=== PATIENT | male | born 1940 | race Caucasian/White ===

== ENCOUNTER 2017-04-25 06:58 | Inpatient (IN) | payer OTHER ==
[2017-04-24 15:11] VITALS: BP 110/58
[2017-04-24 15:33] LABS: APPEARANCE,URINE Clear (CLEAR); BILIRUBIN,URINE Negative (NEGATIVE); COLOR,URINE Yellow (YELLOW); GLUCOSE, URINE (UA) Negative (NEGATIVE); KETONES,URINE Negative (NEGATIVE); LEUKOCYTE ESTERASE ,URINE Small (NEGATIVE); NITRATE,URINE Negative (NEGATIVE); OCCULT BLOOD,URINE Negative (NEGATIVE); PROTEIN,URINE Negative (NEGATIVE)
[2017-04-24 15:33] LABS: EOSINOPHILS % (AUTO) 6.3 % (0.0-8.0); HEMATOCRIT 36.7 % (42-54); LYMPHOCYTES % (AUTO) 28.1 % (21.0-51.0); MEAN CORPUSCULAR HEMOGLOBIN 31.1 pg (27.0-33.0); MEAN CORPUSCULAR HGB CONC 33.9 g/dL (32.0-36.0); MEAN CORPUSCULAR VOLUME 91.7 fL (79-99); MONOCYTES % (AUTO) 17.3 % (3.0-13.0); NEUTROPHILS % (AUTO) 47.3 % (40.0-77.0); PLATELET COUNT (AUTO) 499 K/uL (130-400); RED CELL DISTRIBUTION WIDTH 15.5 % (11.0-15.5)
[2017-04-24 15:52] LABS: CREATININE 0.7 mg/dL (0.5-1.5); INR 1.06 (0.85-1.15); PARTIAL THROMBOPLASTIN TIME 32.1 SEC (26.3-35.5); POTASSIUM 4.8 mmol/L (3.5-5.1); PROTHROMBIN TIME 11.1 SEC (9.6-11.6)
[2017-04-24 15:59] LABS: BACTERIA,URINE None Seen /HPF (None Seen); RBC,URINE None Seen /HPF (0-1); SQUAMOUS EPITHELIAL CELL,UR 0-2 /LPF (0-2)
[~2017-04-25] VITALS: Ht 188 cm; Wt 83.6 kg
[2017-04-25] VITALS (18 sets, daily range): BP systolic 97–151; BP diastolic 32–97
[~2017-04-25 06:58] MED LIST: ACET-66 PO; ASCO10007 PO; ASPI-888 PO; CETI10TA57 PO; CHOL200074 PO; CLOP75TA14 PO; INSU100I15 SQ; INSU3INS3 SQ; ISOS60TA4 PO; MULT-1203 PO; OMEG-61 PO; RANI300T4 PO; RANO10003 PO; SIMV20TA6 PO; UBID200C37 PO; UMEC1DIS IH; VALS40TA10 PO; VITA1TAB39 PO
[2017-04-25] MEDS ORDERED: SODIUM CHLORIDE 0.9% 500ML 500 ML IV ONE (08:16)
[2017-04-25] MEDS ORDERED: ISOVUE-370 50ML VIAL IV ONE (08:31)
[2017-04-25] MEDS ORDERED: NITROGLYCERIN 5 MG/ML 10 ML VIAL IV ONE (08:31)
[2017-04-25] MEDS ORDERED: HEPARIN SODIUM 1000UNIT/ML 10ML VIAL ONE (08:31)
[2017-04-25] MEDS ORDERED: IOPAMIDOL-370 100 ML VIAL IV ONE (08:31)
[2017-04-25] MEDS ORDERED: BIVALIRUDIN 250 MG/VIAL IV ONE (08:31)
[2017-04-25] MEDS ORDERED: LIDOCAINE HCL 2% 20ML ONE (08:32)
[2017-04-25] MEDS ORDERED: IOPAMIDOL-370 75 ML VIAL IV ONE (11:16)
[2017-04-25] MEDS ORDERED: HEPARIN 25000 UNITS/250 ML D5W 250 ML IV ONE (11:47)
[2017-04-25] MEDS ORDERED: INSULIN LISPRO 100 UNIT/ML 3ML SQ PRN (12:00)
[2017-04-25] MEDS ORDERED: SODIUM BICARB 8.4% 50ML SYRINGE IVP ONE (12:00)
[2017-04-25] MEDS ORDERED: GLUCAGON 1MG KIT 1 MG ML IM PRN (12:00)
[2017-04-25] MEDS ORDERED: HEPARIN 25000 UNITS/250 ML D5W 250 ML IV PRN (12:00)
[2017-04-25] MEDS ORDERED: DEXTROSE 50%-WATER 50 ML DISP.SYRIN IV PRN (12:00)
[2017-04-25] MEDS ORDERED: ACETAMINOPHEN EXTRA STRENGTH 500 MG TABLET PO PRN (12:00)
[2017-04-25] MEDS ORDERED: ACETAMINOPHEN-CODEINE 300/30MG TAB PO PRN ×2 (12:00)
[2017-04-25] MEDS: SODIUM CHLORIDE 0.9% 1000ML 1,000 ML IV SCH (16:00)
[2017-04-25] MEDS: INSULIN HUMULIN R 100 UNIT/ML 3ML SQ SCH ×2 (16:30→21:00)
[2017-04-25] MEDS ORDERED: ONDANSETRON HCL 4 MG/2 ML VIAL ONE (16:57)
[2017-04-25] MEDS ORDERED: ONDANSETRON HCL 4 MG/2 ML VIAL IVP PRN (17:00)
[2017-04-25 17:55] LABS: HEMOGLOBIN A1C 5.8 % (4.0-6.0)
[2017-04-25 17:57] LABS: CHOLESTEROL 106 mg/dL (<200); HDL CHOLESTEROL 53 mg/dL (29-71); LDL DIRECT 55 mg/dL (0-99); TRIGLYCERIDES 15 mg/dL (30-200)
[2017-04-25] MEDS ORDERED: DiphenhydrAMINE HCL 50 MG/ML VIAL IV PRN (21:00)
[2017-04-25] MEDS ORDERED: ATORVASTATIN CALCIUM 10 MG TABLET PO SCH (21:00)
[2017-04-25] MEDS ORDERED: ASPIRIN 81 MG EC TAB PO SCH (21:00)
[2017-04-25] MEDS: FAMOTIDINE 20MG TAB 20 MG TAB PO SCH (22:17)
[2017-04-26] VITALS (28 sets, daily range): BP systolic 74–144; BP diastolic 31–105
[2017-04-26] MEDS: SODIUM CHLORIDE 0.9% 1000ML 1,000 ML IV SCH (01:00)
[2017-04-26 03:16] LABS: HEMATOCRIT 39.8 % (42-54); MEAN CORPUSCULAR HEMOGLOBIN 30.3 pg (27.0-33.0); MEAN CORPUSCULAR HGB CONC 33.2 g/dL (32.0-36.0); MEAN CORPUSCULAR VOLUME 91.2 fL (79-99); PLATELET COUNT (AUTO) 436 K/uL (130-400); RED BLOOD CELL COUNT(AUTO) 4.36 MIL/uL (4.50-6.20); WHITE BLOOD COUNT (AUTO) 11.3 K/uL (4.8-10.8)
[2017-04-26 03:22] LABS: CREATININE 0.7 mg/dL (0.5-1.5); POTASSIUM 4.7 mmol/L (3.5-5.1)
[2017-04-26 03:32] LABS: INR 1.03 (0.85-1.15); PARTIAL THROMBOPLASTIN TIME 58.8 SEC (26.3-35.5); PROTHROMBIN TIME 10.8 SEC (9.6-11.6)
[2017-04-26] MEDS ORDERED: NITROGLYCERIN 50 MG/D5% WATER 250 BOT IV PRN (05:45)
[2017-04-26] MEDS ORDERED: NITROGLYCERIN 50 MG/D5% WATER 1 BOT ONE ×2 (05:59→10:28)
[2017-04-26] MEDS: INSULIN HUMULIN R 100 UNIT/ML 3ML SQ SCH (07:11)
[2017-04-26] MEDS ORDERED: VANCOMYCIN 1GM+NS 250ML 250 ML IV ONE (08:00)
[2017-04-26] MEDS ORDERED: ROCURONIUM BROMIDE 10MG/1ML 5ML VL ONE (08:41)
[2017-04-26] MEDS ORDERED: GLYCOPYRROLATE 0.2 MG/ML 5 ML VIAL ONE (08:41)
[2017-04-26] MEDS ORDERED: FENTANYL CITRATE PF 50 MCG/1 ML 20ML VIAL IJ ONE (08:41)
[2017-04-26] MEDS ORDERED: PROTAMINE SULFATE 10 MG/ML 25ML VIAL IV ONE (08:41)
[2017-04-26] MEDS ORDERED: NOREPINEPHRINE BITARTRATE 1 MG/1 ML ML IV ONE (08:41)
[2017-04-26] MEDS ORDERED: ESMOLOL HCL 10 MG/ML 10 ML VIAL ONE (08:41)
[2017-04-26] MEDS ORDERED: LIDOCAINE PF 2% 5ML ABBOJECT ONE (08:41)
[2017-04-26] MEDS ORDERED: EPINEPHRINE 1 MG/ML AMPULE ONE (08:41)
[2017-04-26] MEDS ORDERED: AMIODARONE HCL 900MG/18ML IV ONE (08:41)
[2017-04-26] MEDS ORDERED: NEOSTIGMINE METHYLSULFATE 1MG/ML IV ONE (08:41)
[2017-04-26] MEDS ORDERED: MILRINONE-D5W 20 MG/100 ML 100 ML IV ONE (08:41)
[2017-04-26] MEDS ORDERED: AMINOCAPROIC ACID 250 MG/ML 20 ML VIAL IV ONE (08:41)
[2017-04-26] MEDS ORDERED: HEPARIN SODIUM 1000UNIT/ML 10ML VIAL ONE ×2 (08:41→12:55)
[2017-04-26] MEDS ORDERED: PROPOFOL 10 MG/ML 20ML VIAL IV ONE (08:42)
[2017-04-26] MEDS ORDERED: MIDAZOLAM HCL 1 MG/ML 5ML VIAL ONE (08:42)
[2017-04-26] MEDS ORDERED: Umeclidinium Brm/Vilanterol Tr (Anoro Ellipta 62.5-25 Mcg IH SCH (09:00)
[2017-04-26] MEDS ORDERED: ISOSORBIDE MONO 60 MG TAB.SR PO SCH (09:00)
[2017-04-26] MEDS ORDERED: CHOLECALCIFEROL 2000 UNIT PO SCH (09:00)
[2017-04-26] MEDS ORDERED: INSULIN GLARGINE 100 UNITS/ML 10 ML VIAL SQ SCH (09:00)
[2017-04-26] MEDS: FAMOTIDINE 20MG TAB 20 MG TAB PO SCH (09:12)
[2017-04-26] MEDS ORDERED: DIAZEPAM 5 MG TABLET PO SCH (09:15)
[2017-04-26] MEDS: CALDOLOR 800MG+NS 250ML 250 ML IV SCH (09:15)
[2017-04-26] MEDS ORDERED: OCTYL 2-CYANOACRYLATE 1 EACH TP ONE (09:46)
[2017-04-26] MEDS ORDERED: PAPAVERINE HCL 30 MG/ML 2ML VIAL ONE (09:46)
[2017-04-26] MEDS ORDERED: BACITRACIN 50,000 UNIT VIAL ONE (09:47)
[2017-04-26 12:49] LABS: ABG BASE EXCESS -4.6 mmol/L (-2.0-3.0); ABG HCO3 20.8 mmol/L (21.0-28.0); ABG OXYGEN SATURATION 99.5 % (95.0-99.0); ABG PCO2 40 mmHg (35-48)
[2017-04-26] MEDS ORDERED: THROMBIN-JMI 5000 UNIT/VIAL TP ONE (12:56)
[2017-04-26] MEDS ORDERED: SODIUM BICARB 50MEQ 50ML VIAL ONE ×6 (13:43→20:35)
[2017-04-26 13:57] LABS: ABG BASE EXCESS -3.9 mmol/L (-2.0-3.0); ABG HCO3 21.4 mmol/L (21.0-28.0); ABG OXYGEN SATURATION 99.3 % (95.0-99.0); ABG PCO2 40 mmHg (35-48)
[2017-04-26] MEDS ORDERED: METHYLPREDNISOLONE SOD SUCC 125MG/2ML VIAL ONE (14:07)
[2017-04-26] MEDS ORDERED: SODIUM BICARB 8.4% 50ML SYRINGE ONE (14:54)
[2017-04-26 14:59] LABS: ABG BASE EXCESS -8.1 mmol/L (-2.0-3.0); ABG HCO3 18.4 mmol/L (21.0-28.0); ABG OXYGEN SATURATION 99.5 % (95.0-99.0); ABG PCO2 42 mmHg (35-48)
[2017-04-26] MEDS ORDERED: SODIUM CHLORIDE 0.9% 500ML 500 ML IV SCH (15:46)
[2017-04-26 15:49] LABS: ABG BASE EXCESS -3.5 mmol/L (-2.0-3.0); ABG HCO3 21.4 mmol/L (21.0-28.0); ABG OXYGEN SATURATION 99.4 % (95.0-99.0); ABG PCO2 38 mmHg (35-48)
[2017-04-26] MEDS ORDERED: NITROGLYCERIN 50 MG/D5% WATER 250 BOT IV SCH (16:00)
[2017-04-26] MEDS ORDERED: ONDANSETRON HCL 4 MG/2 ML VIAL IV PRN (16:00)
[2017-04-26] MEDS ORDERED: ACETAMINOPHEN 650 MG SUPPOSITORY RC PRN (16:00)
[2017-04-26] MEDS ORDERED: NICARDIPINE HCL 100 MG in SODIUM CHLORIDE 0.9% 100 ML IV PRN (16:00)
[2017-04-26] MEDS ORDERED: CALCIUM GLUCONATE 1 GM in SODIUM CHLORIDE 0.9% 50 ML IV PRN (16:00)
[2017-04-26] MEDS ORDERED: DEXTROSE 50%-WATER 50 ML DISP.SYRIN IV PRN (16:00)
[2017-04-26] MEDS ORDERED: SODIUM BICARB 8.4% 50ML SYRINGE IV PRN (16:00)
[2017-04-26] MEDS ORDERED: SODIUM CHLORIDE 0.9% 250 ML IV PRN (16:00)
[2017-04-26] MEDS ORDERED: SODIUM CHLORIDE 0.9% 1000ML 1,000 ML IV SCH (16:00)
[2017-04-26] MEDS ORDERED: MORPHINE SULFATE 2 MG/ML 1ML SYG IV PRN (16:00)
[2017-04-26] MEDS ORDERED: GLUCAGON 1MG KIT 1 MG ML IM PRN (16:00)
[2017-04-26] MEDS ORDERED: SODIUM CHLORIDE 0.9% 10 ML VIAL IVP PRN (16:00)
[2017-04-26] MEDS ORDERED: AMINOCAPROIC ACID 15,000 MG in SODIUM CHLORIDE 0.9% 250 ML IV SCH (16:00)
[2017-04-26] MEDS ORDERED: EPINEPHRINE 2 MG in SODIUM CHLORIDE 0.9% 250 ML IV PRN (16:00)
[2017-04-26] MEDS ORDERED: PROPOFOL 1000 MG/100 ML 100 ML IV PRN (16:00)
[2017-04-26] MEDS ORDERED: ALBUMIN (HUMAN) 5% 250 ML IV PRN (16:00)
[2017-04-26] MEDS ORDERED: HYDROCODONE/ACETAMINOPHEN 5/325 MG TAB PO PRN (16:00)
[2017-04-26] MEDS ORDERED: INSULIN REGULAR, HUMAN 3ML 100 UNIT in SODIUM CHLORIDE 0.9% 99 ML IV SCH ×2 (16:00)
[2017-04-26] MEDS ORDERED: POTASSIUM PHOS 15 mMOL+NS250ML 250 ML IV PRN (16:00)
[2017-04-26 16:26] LABS: ABG BASE EXCESS -6.3 mmol/L (-2.0-3.0); ABG HCO3 19.5 mmol/L (21.0-28.0); ABG OXYGEN SATURATION 99.5 % (95.0-99.0); ABG PCO2 40 mmHg (35-48)
[2017-04-26] MEDS ORDERED: EPHEDRINE SULFATE 50 MG/ML AMPULE ONE (16:31)
[2017-04-26 17:14] LABS: HEMATOCRIT 35.1 % (42-54); MEAN CORPUSCULAR HEMOGLOBIN 30.1 pg (27.0-33.0); MEAN CORPUSCULAR HGB CONC 32.4 g/dL (32.0-36.0); MEAN CORPUSCULAR VOLUME 92.8 fL (79-99); PLATELET COUNT (AUTO) 287 K/uL (130-400); RED BLOOD CELL COUNT(AUTO) 3.78 MIL/uL (4.50-6.20); RED CELL DISTRIBUTION WIDTH 15.2 % (11.0-15.5)
[2017-04-26 17:25] LABS: CREATININE 0.9 mg/dL (0.5-1.5); MAGNESIUM 1.3 mg/dL (1.80-2.40); PHOSPHORUS 4.8 mg/dL (2.5-4.9); POTASSIUM 3.5 mmol/L (3.5-5.1)
[2017-04-26 17:26] LABS: INR 1.24 (0.85-1.15); PARTIAL THROMBOPLASTIN TIME 30.1 SEC (26.3-35.5)
[2017-04-26 17:29] LABS: ABG BASE EXCESS -7.6 mmol/L (-2.0-3.0); ABG HCO3 19.5 mmol/L (21.0-28.0); ABG OXYGEN SATURATION 98.5 % (95.0-99.0); ABG PCO2 46 mmHg (35-48)
[2017-04-26] MEDS: POTASSIUM CHLORIDE 20MEQ/100ML 100 ML IV PRN ×3 (17:31→22:19)
[2017-04-26] MEDS: MORPHINE SULFATE 4 MG/1ML SYG IV PRN (17:35)
[2017-04-26 17:38] LABS: WHITE BLOOD COUNT (AUTO) 38.1 K/uL (4.8-10.8)
[2017-04-26] MEDS: MAGNESIUM 2GM PREMIX 50ML 50 ML IV PRN (17:41)
[2017-04-26] MEDS ORDERED: ALBUMIN (HUMAN) 5% 250 ML IV SCH (17:45)
[2017-04-26 17:53] LABS: BAND NEUTROPHILS % (MANUAL) 7 % (0-2); LYMPHOCYTES % (MANUAL) 4 % (22-44); MAN.DIFF COMMENT-IMPRESSION MANUAL DIFFERENTIAL; MONOCYTES % (MANUAL) 4 % (2-9); SEGMENTED NEUTROPHILS % 85 % (40-70)
[2017-04-26 18:26] LABS: ABG BASE EXCESS -6.2 mmol/L (-2.0-3.0); ABG HCO3 20.5 mmol/L (21.0-28.0); ABG OXYGEN SATURATION 98.6 % (95.0-99.0); ABG PCO2 45 mmHg (35-48)
[2017-04-26] MEDS ORDERED: PHARMACY COMMUNICATION MISC SCH (18:45)
[2017-04-26] MEDS ORDERED: EPINEPHRINE 8 MG in SODIUM CHLORIDE 0.9% 250 ML IV PRN (19:08)
[2017-04-26 20:13] LABS: ABG BASE EXCESS -4.2 mmol/L (-2.0-3.0); ABG HCO3 20.8 mmol/L (21.0-28.0); ABG OXYGEN SATURATION 99.3 % (95.0-99.0); ABG PCO2 38 mmHg (35-48)
[2017-04-26] MEDS ORDERED: VALSARTAN 20 MG PO SCH (21:00)
[2017-04-26 21:29] LABS: ABG BASE EXCESS 1.1 mmol/L (-2.0-3.0); ABG HCO3 26.4 mmol/L (21.0-28.0); ABG OXYGEN SATURATION 98.1 % (95.0-99.0); ABG PCO2 45 mmHg (35-48)
[2017-04-26] MEDS: NOREPINEPHRINE 4MG/NS 250ML 250 ML IV PRN (22:52)
[2017-04-27] VITALS (24 sets, daily range): BP systolic 91–117; BP diastolic 35–66
[2017-04-27] MEDS: VANCOMYCIN 1GM+NS 250ML 250 ML IV SCH ×2 (00:03→12:19)
[2017-04-27 01:00] LABS: MAGNESIUM 1.7 mg/dL (1.80-2.40); POTASSIUM 3.6 mmol/L (3.5-5.1)
[2017-04-27] MEDS: MAGNESIUM 2GM PREMIX 50ML 50 ML IV PRN (01:10)
[2017-04-27] MEDS: POTASSIUM CHLORIDE 20MEQ/100ML 100 ML IV PRN ×2 (01:10→02:01)
[2017-04-27] MEDS: NOREPINEPHRINE 4MG/NS 250ML 250 ML IV PRN ×3 (03:17→17:24)
[2017-04-27] MEDS: MORPHINE SULFATE 4 MG/1ML SYG IV PRN (04:14)
[2017-04-27 04:33] LABS: HEMATOCRIT 30.9 % (42-54); MEAN CORPUSCULAR HEMOGLOBIN 31.6 pg (27.0-33.0); MEAN CORPUSCULAR HGB CONC 35.4 g/dL (32.0-36.0); MEAN CORPUSCULAR VOLUME 89.2 fL (79-99); PLATELET COUNT (AUTO) 255 K/uL (130-400); RED BLOOD CELL COUNT(AUTO) 3.46 MIL/uL (4.50-6.20); WHITE BLOOD COUNT (AUTO) 21.9 K/uL (4.8-10.8)
[2017-04-27 04:58] LABS: CREATININE 1.4 mg/dL (0.5-1.5); MAGNESIUM 2.2 mg/dL (1.80-2.40); PHOSPHORUS 1.6 mg/dL (2.5-4.9)
[2017-04-27 05:10] LABS: INR 1.15 (0.85-1.15); PARTIAL THROMBOPLASTIN TIME 31.3 SEC (26.3-35.5)
[2017-04-27 06:12] LABS: ABG BASE EXCESS 8.5 mmol/L (-2.0-3.0); ABG HCO3 33.7 mmol/L (21.0-28.0); ABG OXYGEN SATURATION 97.7 % (95.0-99.0); ABG PCO2 48 mmHg (35-48)
[2017-04-27] MEDS: PANTOPRAZOLE SODIUM 40 MG TABLET.DR PO SCH (08:35)
[2017-04-27 09:20] LABS: ABG BASE EXCESS 4.3 mmol/L (-2.0-3.0); ABG HCO3 29.7 mmol/L (21.0-28.0); ABG OXYGEN SATURATION 97.3 % (95.0-99.0); ABG PCO2 47 mmHg (35-48)
[2017-04-27 10:45] LABS: ABG BASE EXCESS 6.3 mmol/L (-2.0-3.0); ABG HCO3 31.8 mmol/L (21.0-28.0); ABG OXYGEN SATURATION 97.1 % (95.0-99.0); ABG PCO2 49 mmHg (35-48)
[2017-04-27] MEDS: ASPIRIN 81MG TAB.CHEW PO SCH (10:54)
[2017-04-27 11:22] LABS: ABG BASE EXCESS 4.9 mmol/L (-2.0-3.0); ABG HCO3 30.4 mmol/L (21.0-28.0); ABG OXYGEN SATURATION 97.6 % (95.0-99.0); ABG PCO2 48 mmHg (35-48)
[2017-04-27 13:08] LABS: ABG BASE EXCESS 4.9 mmol/L (-2.0-3.0); ABG HCO3 30.4 mmol/L (21.0-28.0); ABG OXYGEN SATURATION 95.5 % (95.0-99.0); ABG PCO2 48 mmHg (35-48)
[2017-04-27] MEDS: HYDROCODONE/ACETAMINOPHEN 5/325 MG TAB PO PRN ×2 (15:18→19:52)
[2017-04-27] MEDS: ATORVASTATIN CALCIUM 10 MG TABLET PO SCH (21:19)
[2017-04-28] VITALS (24 sets, daily range): BP systolic 88–128; BP diastolic 39–75
[2017-04-28] MEDS: VANCOMYCIN 1GM+NS 250ML 250 ML IV SCH (00:10)
[2017-04-28] MEDS: NOREPINEPHRINE 4MG/NS 250ML 250 ML IV PRN (03:00)
[2017-04-28] MEDS: HYDROCODONE/ACETAMINOPHEN 5/325 MG TAB PO PRN ×2 (04:51→22:13)
[2017-04-28 05:17] LABS: HEMATOCRIT 25.6 % (42-54); MEAN CORPUSCULAR HEMOGLOBIN 30.9 pg (27.0-33.0); MEAN CORPUSCULAR HGB CONC 33.8 g/dL (32.0-36.0); MEAN CORPUSCULAR VOLUME 91.2 fL (79-99); NUCLEATED RED BLOOD CELLS 0.1 % (0.0-0.19); PLATELET COUNT (AUTO) 221 K/uL (130-400); RED BLOOD CELL COUNT(AUTO) 2.81 MIL/uL (4.50-6.20); RED CELL DISTRIBUTION WIDTH 15.9 % (11.0-15.5); WHITE BLOOD COUNT (AUTO) 24.8 K/uL (4.8-10.8)
[2017-04-28 05:28] LABS: CREATININE 0.8 mg/dL (0.5-1.5); PHOSPHORUS 2.5 mg/dL (2.5-4.9); POTASSIUM 3.8 mmol/L (3.5-5.1)
[2017-04-28 05:43] LABS: BAND NEUTROPHILS % (MANUAL) 10 % (0-2); LYMPHOCYTES % (MANUAL) 3 % (22-44); MAN.DIFF COMMENT-IMPRESSION MANUAL DIFFERENTIAL; MONOCYTES % (MANUAL) 3 % (2-9); PLATELET MORPHOLOGY COMMENT ADEQUATE; SEGMENTED NEUTROPHILS % 84 % (40-70)
[2017-04-28] MEDS: POTASSIUM CHLORIDE 20MEQ/100ML 100 ML IV PRN (06:15)
[2017-04-28] MEDS: PANTOPRAZOLE SODIUM 40 MG TABLET.DR PO SCH (08:45)
[2017-04-28] MEDS: ASPIRIN 81MG TAB.CHEW PO SCH (08:45)
[2017-04-28] MEDS: IPRATROPIUM/ALBUTEROL SULFATE 3 ML SOLUTION IH PRN ×2 (09:11→19:21)
[2017-04-28] MEDS: INSULIN HUMULIN R 100 UNIT/ML 3ML SQ SCH ×3 (10:52→20:54)
[2017-04-28] MEDS: ATORVASTATIN CALCIUM 10 MG TABLET PO SCH (20:52)
[2017-04-28] MEDS: MORPHINE SULFATE 4 MG/1ML SYG IV PRN (22:38)
[2017-04-29] VITALS (24 sets, daily range): BP systolic 92–127; BP diastolic 53–73
[2017-04-29] MEDS: ACETAMINOPHEN 325 MG TAB PO PRN ×2 (01:36→05:52)
[2017-04-29 04:16] LABS: HEMATOCRIT 23.4 % (42-54); MEAN CORPUSCULAR HEMOGLOBIN 31.5 pg (27.0-33.0); MEAN CORPUSCULAR VOLUME 92.7 fL (79-99); NUCLEATED RED BLOOD CELLS 0.3 % (0.0-0.19); PLATELET COUNT (AUTO) 222 K/uL (130-400); RED BLOOD CELL COUNT(AUTO) 2.52 MIL/uL (4.50-6.20); WHITE BLOOD COUNT (AUTO) 18.4 K/uL (4.8-10.8)
[2017-04-29 04:38] LABS: CREATININE 0.9 mg/dL (0.5-1.5)
[2017-04-29] MEDS: INSULIN HUMULIN R 100 UNIT/ML 3ML SQ SCH ×4 (06:32→21:19)
[2017-04-29] MEDS: IPRATROPIUM/ALBUTEROL SULFATE 3 ML SOLUTION IH PRN ×2 (06:49→17:17)
[2017-04-29] MEDS: ASPIRIN 81MG TAB.CHEW PO SCH (08:33)
[2017-04-29] MEDS: PANTOPRAZOLE SODIUM 40 MG TABLET.DR PO SCH (08:33)
[2017-04-29] MEDS: INSULIN GLARGINE 100 UNITS/ML 10 ML VIAL SQ SCH (09:29)
[2017-04-29] MEDS ORDERED: TRAMADOL HCL 50 MG TABLET PO PRN ×2 (21:15)
[2017-04-29] MEDS: FUROSEMIDE 10 MG/ML 2ML VIAL IV SCH (21:17)
[2017-04-29] MEDS: POTASSIUM CHLORIDE 20 MEQ ERTAB PO SCH (21:17)
[2017-04-29] MEDS: DOCUSATE SODIUM 100 MG CAP PO SCH (21:18)
[2017-04-29] MEDS: ATORVASTATIN CALCIUM 10 MG TABLET PO SCH (21:18)
[2017-04-29] MEDS: FERROUS SULFATE 325 MG TABLET.DR PO SCH (21:18)
[2017-04-29] MEDS ORDERED: AMIODARONE HCL 900MG/18ML IV ONE ×2 (23:00→23:19)
[2017-04-29] MEDS ORDERED: AMIODARONE HCL 900 MG in DEXTROSE 5%-WATER 500 ML IV SCH (23:30)
[2017-04-29] MEDS ORDERED: AMIODARONE HCL 150 MG in DEXTROSE 5%-WATER 100 ML IV SCH (23:30)
[2017-04-30] VITALS (13 sets, daily range): BP systolic 95–125; BP diastolic 46–73
[2017-04-30] MEDS: CALCIUM GLUCONATE 1 GM in DEXTROSE 5%-WATER 50 ML IV SCH ×2 (00:04→13:34)
[2017-04-30] MEDS: ACETAMINOPHEN 325 MG TAB PO PRN (03:41)
[2017-04-30 03:53] LABS: HEMATOCRIT 23.7 % (42-54); MEAN CORPUSCULAR HEMOGLOBIN 30.4 pg (27.0-33.0); MEAN CORPUSCULAR HGB CONC 33.2 g/dL (32.0-36.0); MEAN CORPUSCULAR VOLUME 91.4 fL (79-99); NUCLEATED RED BLOOD CELLS 0.9 % (0.0-0.19); PLATELET COUNT (AUTO) 233 K/uL (130-400); RED BLOOD CELL COUNT(AUTO) 2.59 MIL/uL (4.50-6.20); RED CELL DISTRIBUTION WIDTH 15.7 % (11.0-15.5); WHITE BLOOD COUNT (AUTO) 11.5 K/uL (4.8-10.8)
[2017-04-30 04:04] LABS: CREATININE 0.8 mg/dL (0.5-1.5); POTASSIUM 3.7 mmol/L (3.5-5.1)
[2017-04-30] MEDS: INSULIN HUMULIN R 100 UNIT/ML 3ML SQ SCH ×4 (06:43→21:19)
[2017-04-30] MEDS: IPRATROPIUM/ALBUTEROL SULFATE 3 ML SOLUTION IH PRN (07:30)
[2017-04-30] MEDS: PANTOPRAZOLE SODIUM 40 MG TABLET.DR PO SCH (08:12)
[2017-04-30] MEDS: ASPIRIN 81MG TAB.CHEW PO SCH (08:12)
[2017-04-30] MEDS: FERROUS SULFATE 325 MG TABLET.DR PO SCH ×2 (08:12→21:19)
[2017-04-30] MEDS: POTASSIUM CHLORIDE 20 MEQ ERTAB PO SCH ×2 (08:12→21:20)
[2017-04-30] MEDS: DOCUSATE SODIUM 100 MG CAP PO SCH ×2 (08:12→21:19)
[2017-04-30] MEDS: POTASSIUM CHLORIDE 20MEQ/100ML 100 ML IV PRN (08:13)
[2017-04-30] MEDS: FUROSEMIDE 10 MG/ML 2ML VIAL IV SCH ×2 (08:13→21:19)
[2017-04-30] MEDS: INSULIN GLARGINE 100 UNITS/ML 10 ML VIAL SQ SCH (08:14)
[2017-04-30] MEDS ORDERED: CALCIUM GLUCONATE 1 GM in DEXTROSE 5%-WATER 50 ML IV SCH (12:45)
[2017-04-30] MEDS: METOPROLOL TARTRATE 25 MG TAB PO SCH ×2 (13:15→21:20)
[2017-04-30] MEDS ORDERED: AMIODARONE HCL 200 MG TABLET PO SCH (21:00)
[2017-04-30] MEDS: ATORVASTATIN CALCIUM 20 MG TABLET PO SCH (21:20)
[2017-05-01] VITALS (7 sets, daily range): BP systolic 94–117; BP diastolic 57–67
[2017-05-01 04:25] LABS: HEMATOCRIT 24.9 % (42-54); MEAN CORPUSCULAR HGB CONC 35.2 g/dL (32.0-36.0); MEAN CORPUSCULAR VOLUME 91.1 fL (79-99); NUCLEATED RED BLOOD CELLS 0.7 % (0.0-0.19); PLATELET COUNT (AUTO) 320 K/uL (130-400); RED BLOOD CELL COUNT(AUTO) 2.73 MIL/uL (4.50-6.20); RED CELL DISTRIBUTION WIDTH 14.8 % (11.0-15.5); WHITE BLOOD COUNT (AUTO) 9.9 K/uL (4.8-10.8)
[2017-05-01 04:31] LABS: CREATININE 0.8 mg/dL (0.5-1.5); POTASSIUM 3.6 mmol/L (3.5-5.1)
[2017-05-01] MEDS: INSULIN HUMULIN R 100 UNIT/ML 3ML SQ SCH ×4 (05:49→20:59)
[2017-05-01] MEDS ORDERED: POTASSIUM CHLORIDE 20 MEQ ERTAB PO PRN (08:30)
[2017-05-01] MEDS ORDERED: POTASSIUM CHLORIDE 10% ELIXIR 20 MEQ/15 ML UDCUP PO PRN (08:30)
[2017-05-01] MEDS: INSULIN GLARGINE 100 UNITS/ML 10 ML VIAL SQ SCH (09:49)
[2017-05-01] MEDS: ASPIRIN 81MG TAB.CHEW PO SCH (10:26)
[2017-05-01] MEDS: METOPROLOL TARTRATE 25 MG TAB PO SCH ×2 (10:27→20:58)
[2017-05-01] MEDS: PANTOPRAZOLE SODIUM 40 MG TABLET.DR PO SCH (10:27)
[2017-05-01] MEDS: FERROUS SULFATE 325 MG TABLET.DR PO SCH ×2 (10:27→20:57)
[2017-05-01] MEDS: DOCUSATE SODIUM 100 MG CAP PO SCH ×2 (10:27→20:56)
[2017-05-01] MEDS: POTASSIUM CHLORIDE 20 MEQ ERTAB PO SCH ×2 (10:28→20:57)
[2017-05-01] MEDS: FUROSEMIDE 20 MG TABLET PO SCH (16:00)
[2017-05-01] MEDS: ATORVASTATIN CALCIUM 20 MG TABLET PO SCH (20:56)
[2017-05-02] VITALS (7 sets, daily range): BP systolic 90–110; BP diastolic 50–64
[2017-05-02] MEDS: INSULIN HUMULIN R 100 UNIT/ML 3ML SQ SCH ×4 (07:09→21:00)
[2017-05-02] MEDS: ASPIRIN 81MG TAB.CHEW PO SCH (07:58)
[2017-05-02] MEDS: FUROSEMIDE 20 MG TABLET PO SCH ×2 (07:58→16:29)
[2017-05-02] MEDS: DOCUSATE SODIUM 100 MG CAP PO SCH ×2 (07:58→21:00)
[2017-05-02] MEDS: PANTOPRAZOLE SODIUM 40 MG TABLET.DR PO SCH (07:58)
[2017-05-02] MEDS: METOPROLOL TARTRATE 25 MG TAB PO SCH ×2 (07:58→21:00)
[2017-05-02] MEDS: FERROUS SULFATE 325 MG TABLET.DR PO SCH ×2 (07:59→21:00)
[2017-05-02] MEDS: POTASSIUM CHLORIDE 20 MEQ ERTAB PO SCH ×2 (07:59→21:00)
[2017-05-02] MEDS: INSULIN GLARGINE 100 UNITS/ML 10 ML VIAL SQ SCH (08:00)
[2017-05-02] MEDS: ENOXAPARIN SODIUM 30 MG/0.3 ML SQ SCH (08:14)
[2017-05-02] MEDS: CLOPIDOGREL BISULFATE 75 MG TAB PO SCH (08:57)
[2017-05-02] MEDS: ATORVASTATIN CALCIUM 20 MG TABLET PO SCH (21:00)
[2017-05-03 03:25] VITALS: BP 112/57
[2017-05-03 04:34] LABS: CREATININE 0.8 mg/dL (0.5-1.5); POTASSIUM 4.1 mmol/L (3.5-5.1)
[2017-05-03] MEDS: INSULIN HUMULIN R 100 UNIT/ML 3ML SQ SCH ×4 (06:55→21:37)
[2017-05-03] MEDS: INSULIN GLARGINE 100 UNITS/ML 10 ML VIAL SQ SCH ×2 (07:01→08:29)
[2017-05-03 07:20] VITALS: BP 96/57
[2017-05-03] MEDS: METOPROLOL TARTRATE 25 MG TAB PO SCH ×2 (08:26→21:00)
[2017-05-03] MEDS: FERROUS SULFATE 325 MG TABLET.DR PO SCH ×2 (08:26→20:42)
[2017-05-03] MEDS: PANTOPRAZOLE SODIUM 40 MG TABLET.DR PO SCH (08:26)
[2017-05-03] MEDS: DOCUSATE SODIUM 100 MG CAP PO SCH ×2 (08:26→20:42)
[2017-05-03] MEDS: CLOPIDOGREL BISULFATE 75 MG TAB PO SCH (08:26)
[2017-05-03] MEDS: FUROSEMIDE 20 MG TABLET PO SCH (08:26)
[2017-05-03] MEDS: ASPIRIN 81MG TAB.CHEW PO SCH (08:26)
[2017-05-03] MEDS: POTASSIUM CHLORIDE 20 MEQ ERTAB PO SCH ×2 (08:28→21:00)
[2017-05-03] MEDS: ENOXAPARIN SODIUM 30 MG/0.3 ML SQ SCH (08:28)
[2017-05-03] MEDS ORDERED: CLOPIDOGREL BISULFATE 75 MG TAB PO SCH (11:00)
[2017-05-03 11:24] VITALS: BP 93/53
[2017-05-03 11:35] LABS: CREATINE KINASE MB 0.7 ng/mL (0.5-3.6)
[2017-05-03 11:36] LABS: TROPONIN I 0.94 ng/mL (0.00-0.06)
[2017-05-03] MEDS: FUROSEMIDE 10 MG/ML 2ML VIAL IV SCH ×2 (12:18→20:42)
[2017-05-03] MEDS: POTASSIUM CHLORIDE 10 MEQ/TAB.SA PO SCH ×3 (12:30→20:45)
[2017-05-03 16:12] VITALS: BP 98/56
[2017-05-03 19:32] VITALS: BP 108/56
[2017-05-03] MEDS: ATORVASTATIN CALCIUM 20 MG TABLET PO SCH (20:43)
[2017-05-04] VITALS (7 sets, daily range): BP systolic 95–120; BP diastolic 53–100
[2017-05-04] MEDS: FUROSEMIDE 10 MG/ML 2ML VIAL IV SCH ×3 (05:04→20:30)
[2017-05-04] MEDS: INSULIN HUMULIN R 100 UNIT/ML 3ML SQ SCH ×4 (06:42→21:00)
[2017-05-04] MEDS: PANTOPRAZOLE SODIUM 40 MG TABLET.DR PO SCH (09:21)
[2017-05-04] MEDS: POTASSIUM CHLORIDE 10 MEQ/TAB.SA PO SCH ×3 (09:21→20:32)
[2017-05-04] MEDS: CLOPIDOGREL BISULFATE 75 MG TAB PO SCH (09:21)
[2017-05-04] MEDS: DOCUSATE SODIUM 100 MG CAP PO SCH ×2 (09:21→20:31)
[2017-05-04] MEDS: FERROUS SULFATE 325 MG TABLET.DR PO SCH ×2 (09:22→20:31)
[2017-05-04] MEDS: ASPIRIN 81MG TAB.CHEW PO SCH (09:22)
[2017-05-04] MEDS: METOPROLOL TARTRATE 25 MG TAB PO SCH ×2 (09:22→21:00)
[2017-05-04] MEDS: INSULIN GLARGINE 100 UNITS/ML 10 ML VIAL SQ SCH (09:23)
[2017-05-04] MEDS: ENOXAPARIN SODIUM 30 MG/0.3 ML SQ SCH (09:23)
[2017-05-04] MEDS ORDERED: FERR324T4 PO (10:00)
[2017-05-04] MEDS ORDERED: FURO40TA5 PO (10:00)
[2017-05-04] MEDS ORDERED: POTA-79 PO (10:00)
[2017-05-04] MEDS ORDERED: METO25 PO (10:00)
[2017-05-04] MEDS ORDERED: ATOR20TA65 PO (10:00)
[2017-05-04] MEDS ORDERED: DOCU-116 PO (10:01)
[2017-05-04] MEDS ORDERED: LISI2.5T2 PO (10:03)
[2017-05-04 10:16] LABS: CREATININE 0.8 mg/dL (0.5-1.5); POTASSIUM 4.1 mmol/L (3.5-5.1)
[2017-05-05] MEDS: ATORVASTATIN CALCIUM 20 MG TABLET PO SCH (02:11)
[2017-05-05 03:39] VITALS: BP 116/63
[2017-05-05 04:48] LABS: CREATININE 0.8 mg/dL (0.5-1.5); POTASSIUM 4.1 mmol/L (3.5-5.1)
[2017-05-05] MEDS: FUROSEMIDE 10 MG/ML 2ML VIAL IV SCH ×2 (05:00→13:21)
[2017-05-05] MEDS: INSULIN HUMULIN R 100 UNIT/ML 3ML SQ SCH ×2 (06:06→12:06)
[2017-05-05 07:10] VITALS: BP 102/62
[2017-05-05] MEDS: PANTOPRAZOLE SODIUM 40 MG TABLET.DR PO SCH (09:25)
[2017-05-05] MEDS: METOPROLOL TARTRATE 25 MG TAB PO SCH (09:25)
[2017-05-05] MEDS: FERROUS SULFATE 325 MG TABLET.DR PO SCH (09:25)
[2017-05-05] MEDS: DOCUSATE SODIUM 100 MG CAP PO SCH (09:25)
[2017-05-05] MEDS: ASPIRIN 81MG TAB.CHEW PO SCH (09:25)
[2017-05-05] MEDS: CLOPIDOGREL BISULFATE 75 MG TAB PO SCH (09:25)
[2017-05-05] MEDS: ENOXAPARIN SODIUM 30 MG/0.3 ML SQ SCH (09:26)
[2017-05-05] MEDS: POTASSIUM CHLORIDE 10 MEQ/TAB.SA PO SCH ×2 (09:26→13:22)
[2017-05-05] MEDS: INSULIN GLARGINE 100 UNITS/ML 10 ML VIAL SQ SCH (09:27)
[2017-05-05 12:00] VITALS: BP 103/53
[2017-05-05] MEDS: IPRATROPIUM/ALBUTEROL SULFATE 3 ML SOLUTION IH PRN (13:59)
[2017-05-05 16:00] VITALS: BP 101/57
[2017-05-05] MEDS ORDERED: INSULIN GLARGINE 100 UNITS/ML 10 ML VIAL SQ ONE (16:00)
== END 2017-05-05 19:01 | DRG 233 ==
LOC: DAH 06:58 → DAHIP 06:59 → 2CH 12:48 → 2CV 04-26 12:18 → 2CH 04-27 18:29 → 2DH 04-30 17:13
PROVIDERS: ADMIT Internal Medicine Cardiovascular Disease; ATTEND Internal Medicine Cardiovascular Disease
PROC: 4A023N7 Measurement of Cardiac Sampling and Pressure, Left Heart, Percutaneous Approach (ICD-10-PCS; principal; 2017-04-25)
PROC: B2111ZZ Fluoroscopy of Multiple Coronary Arteries using Low Osmolar Contrast (ICD-10-PCS; 2017-04-25)
PROC: B2151ZZ Fluoroscopy of Left Heart using Low Osmolar Contrast (ICD-10-PCS; 2017-04-25)
PROC: B41F1ZZ Fluoroscopy of Right Lower Extremity Arteries using Low Osmolar Contrast (ICD-10-PCS; 2017-04-25)
PROC: 02100Z9 Bypass Coronary Artery, One Artery from Left Internal Mammary, Open Approach (ICD-10-PCS; 2017-04-26)
PROC: 06BQ3ZZ Excision of Left Saphenous Vein, Percutaneous Approach (ICD-10-PCS; 2017-04-26)
PROC: 30233N1 Transfusion of Nonautologous Red Blood Cells into Peripheral Vein, Percutaneous Approach (ICD-10-PCS; 2017-04-26)
PROC: 021209W Bypass Coronary Artery, Three Arteries from Aorta with Autologous Venous Tissue, Open Approach (ICD-10-PCS; 2017-04-26 12:17)
DX: T82.855A Stenosis of coronary artery stent, initial encounter (principal); I50.23 Acute on chronic systolic (congestive) heart failure; G61.0 Guillain-Barre syndrome; E87.0 Hyperosmolality and hypernatremia; D62 Acute posthemorrhagic anemia; J98.11 Atelectasis; I25.119 Atherosclerotic heart disease of native coronary artery with unspecified angina pectoris; N48.89 Other specified disorders of penis; I11.0 Hypertensive heart disease with heart failure; D72.829 Elevated white blood cell count, unspecified; E11.65 Type 2 diabetes mellitus with hyperglycemia; E78.5 Hyperlipidemia, unspecified; I25.5 Ischemic cardiomyopathy; I35.0 Nonrheumatic aortic (valve) stenosis; I48.0 Paroxysmal atrial fibrillation; J44.9 Chronic obstructive pulmonary disease, unspecified; N50.89 Other specified disorders of the male genital organs; Y83.1 Surgical operation with implant of artificial internal device as the cause of abnormal reaction of the patient, or of later complication, without mention of misadventure at the time of the procedure; Z75.1 Person awaiting admission to adequate facility elsewhere; Z79.82 Long term (current) use of aspirin; Z79.899 Other long term (current) drug therapy; Z86.11 Personal history of tuberculosis; Z87.01 Personal history of pneumonia (recurrent); Z90.2 Acquired absence of lung [part of]
CPT/HCPCS: 33967; 36415; 36430; 36600; 71045; 80048; 80061; 81001; 82330; 82435; 82550; 82553; 82803; 82947; 82948; 83036; 83605; 83735; 83874; 83880; 84100; 84132; 84295; 84484; 85007; 85018; 85025; 85027; 85347; 85610; 85730; 86850; 86900; 86901; 86922; 88313; 93005; 93458; 93459; 93880; 93971; 94002; 94003; 94010; 94150; 94640; 94664; 97039; A4357; A4606; A7048; C1894; J0171; J0282; J0583; J0610; J1644; J1650; J1741; J1815; J1940; J2001; J2250; J2260; J2270; J2405; J2440; J2704; J2710; J2720; J2930; J3010; J3370; J3475; J3480; J3490; J7030; J7040; J7060; P9016; P9045; Q9967

== ENCOUNTER 2018-12-21 07:25 | Day surgery (SDC) | payer OTHER ==
[2017-10-25 14:44] LABS: BASOPHILS % (AUTO) 1.9 % (0.0-5.0); EOSINOPHILS % (AUTO) 8.3 % (0.0-8.0); HEMATOCRIT 23.3 % (42-54); LYMPHOCYTES % (AUTO) 39.2 % (21.0-51.0); MEAN CORPUSCULAR HEMOGLOBIN 27.3 pg (27.0-33.0); MEAN CORPUSCULAR HGB CONC 32.5 g/dL (32.0-36.0); MEAN CORPUSCULAR VOLUME 84.1 fL (79-99); MONOCYTES % (AUTO) 20.6 % (3.0-13.0); PLATELET COUNT (AUTO) 421 K/uL (130-400); RED BLOOD CELL COUNT(AUTO) 2.77 MIL/uL (4.50-6.20); RED CELL DISTRIBUTION WIDTH 19.4 % (11.0-15.5); WHITE BLOOD COUNT (AUTO) 4.1 K/uL (4.8-10.8)
[2017-10-25 14:53] LABS: CREATININE 0.9 mg/dL (0.5-1.5); POTASSIUM 5.3 mmol/L (3.5-5.1)
[2017-10-25 15:02] VITALS: BP 94/50
--- NOTE | 2017-10-25 15:45 | NUR ---
note spoke to dr moreno regarding patients labs. states for me to call primary doctor to treat him. SPOKE TO PRIMARY DOCTOR, SHE INSTRUCTED FOR PT TO GO THROUGH THE ER FOR ADMISSION , SO THAT HE CAN GET TRANSFUSED. PT HAS MULTIPLE MEDICAL PROBLEMS AND WILL NOT BENEFIT TO TRANSFUSE OUTPATIENT. PT WAS ESCORTED TO ER.
[2018-12-19 15:59] LABS: BASOPHILS % (AUTO) 1.1 % (0.0-5.0); EOSINOPHILS % (AUTO) 7.6 % (0.0-8.0); HEMATOCRIT 38.1 % (42-54); LYMPHOCYTES % (AUTO) 34.7 % (21.0-51.0); MEAN CORPUSCULAR HEMOGLOBIN 30.8 pg (27.0-33.0); MEAN CORPUSCULAR HGB CONC 32.9 g/dL (32.0-36.0); MEAN CORPUSCULAR VOLUME 93.6 fL (79-99); MONOCYTES % (AUTO) 15.1 % (3.0-13.0); NEUTROPHILS % (AUTO) 41.5 % (40.0-77.0); NUCLEATED RED BLOOD CELLS 0.2 % (0.0-0.19); PLATELET COUNT (AUTO) 371 K/uL (130-400); RED BLOOD CELL COUNT(AUTO) 4.07 MIL/uL (4.50-6.20); RED CELL DISTRIBUTION WIDTH 14.5 % (11.0-15.5); WHITE BLOOD COUNT (AUTO) 5.3 K/uL (4.8-10.8)
[2018-12-19 16:10] LABS: POTASSIUM 4.9 mmol/L (3.5-5.1)
[2018-12-19 16:30] VITALS: BP 93/48
--- NOTE | 2018-12-20 15:48 | NUR ---
EKG ABNORMAL EKG REPORTED TO DR. COREY. OK TO PROCEED WITH SX , NO FUTHER ORDERS GIVEN AT THIS TIME
[~2018-12-21] VITALS: Ht 188 cm; Wt 76.6 kg
[2018-12-21] VITALS (19 sets, daily range): BP systolic 117–153; BP diastolic 55–82
[2018-12-21] MEDS: LEVOFLOXACIN 500 MG/D5W 100 ML 100 ML IV SCH ×2 (06:00→09:05)
[~2018-12-21 07:25] MED LIST changes: -ASCO10007 PO; +ATOR20TA65 PO; +CETI10CA5 PO; -CETI10TA57 PO; -CHOL200074 PO; +EPHEDRINE SULFATE 50 MG/ML AMPULE ONE; +FENTANYL CITRATE PF 50 MCG/1 ML 2ML VIAL ONE; +FERR325T22 PO; +LEVOFLOXACIN 500 MG/D5W 100 ML 100 ML IV SCH; +METO25 PO; +MITOMYCIN 40 MG VIAL SCH; -MULT-1203 PO; -OMEG-61 PO; +PROPOFOL 10 MG/ML 20ML VIAL IV ONE; -RANO10003 PO; -SIMV20TA6 PO; -UBID200C37 PO; -VALS40TA10 PO; -VITA1TAB39 PO
[2018-12-21] MEDS ORDERED: MITOMYCIN 40 MG VIAL ONE (07:26)
[2018-12-21] MEDS ORDERED: SODIUM CHLORIDE 0.9% 1000ML 1,000 ML IV ONE (07:46)
[2018-12-21] MEDS ORDERED: IOHEXOL-350 50ML VIAL IV ONE (08:00)
[2018-12-21] MEDS ORDERED: FENTANYL CITRATE PF 50 MCG/1 ML 5ML AMP IV ONE (09:00)
[2018-12-21] MEDS ORDERED: PROPOFOL 10 MG/ML 20ML VIAL IV ONE (09:00)
[2018-12-21] MEDS ORDERED: LIDOCAINE PF 2% 5ML ABBOJECT ONE (09:00)
[2018-12-21] MEDS ORDERED: PHENAZOPYRIDINE HCL 200 MG TABLET ONE (10:50)
== END 2018-12-21 12:05 | disposition home or self-care (01) ==
LOC: DAH 07:25
PROVIDERS: ATTEND Urology
DX: C67.9 Malignant neoplasm of bladder, unspecified (principal); D30.3 Benign neoplasm of bladder; I10 Essential (primary) hypertension; I25.118 Atherosclerotic heart disease of native coronary artery with other forms of angina pectoris; I25.2 Old myocardial infarction; I21.9 Acute myocardial infarction, unspecified; M19.90 Unspecified osteoarthritis, unspecified site; E10.21 Type 1 diabetes mellitus with diabetic nephropathy; Z88.0 Allergy status to penicillin; Z88.8 Allergy status to other drugs, medicaments and biological substances; Z79.4 Long term (current) use of insulin; Z79.899 Other long term (current) drug therapy; Z98.890 Other specified postprocedural states; Z95.5 Presence of coronary angioplasty implant and graft; Z87.891 Personal history of nicotine dependence; Z91.048 Other nonmedicinal substance allergy status; Z79.82 Long term (current) use of aspirin; Z82.5 Family history of asthma and other chronic lower respiratory diseases
CPT/HCPCS: 36415; 51720; 52235; 80048; 82948 ×3; 85025; 88305; 93005; 96360; A4215; A4221; A4222; A4223; A4340; A4354; A4358; A4510; A4600; A4663; J1956; J2001; J2704 ×2; J3010; J3490; J7030; J7120; J9280; Q9967

== ENCOUNTER 2020-04-22 11:27 | Inpatient (IN) | payer OTHER ==
[~2020-04-22] VITALS: Ht 188 cm; Wt 78.2 kg
[~2020-04-22 11:27] MED LIST changes: -EPHEDRINE SULFATE 50 MG/ML AMPULE ONE; -FENTANYL CITRATE PF 50 MCG/1 ML 2ML VIAL ONE; -ISOS60TA4 PO; +ISOS60TA77 PO; -LEVOFLOXACIN 500 MG/D5W 100 ML 100 ML IV SCH; -MITOMYCIN 40 MG VIAL SCH; -PROPOFOL 10 MG/ML 20ML VIAL IV ONE
[2020-04-22 11:37] LABS: BASOPHILS % (AUTO) 0.5 % (0.0-5.0); HEMATOCRIT 23.1 % (42-54); MEAN CORPUSCULAR HEMOGLOBIN 31.2 pg (27.0-33.0); MEAN CORPUSCULAR VOLUME 97.5 fL (79-99); NEUTROPHILS % (AUTO) 66.1 % (40.0-77.0); PLATELET COUNT (AUTO) 377 K/uL (130-400); RED BLOOD CELL COUNT(AUTO) 2.37 MIL/uL (4.50-6.20); RED CELL DISTRIBUTION WIDTH 17.6 % (11.0-15.5); WHITE BLOOD COUNT (AUTO) 7.4 K/uL (4.8-10.8)
[2020-04-22] MEDS ORDERED: ASPIRIN 325 MG TABLET ONE (11:40)
[2020-04-22 11:48] LABS: CREATININE 0.8 mg/dL (0.5-1.5); POTASSIUM 4.6 mmol/L (3.5-5.1)
[2020-04-22 11:51] LABS: INR 1.07 (0.85-1.15); PROTHROMBIN TIME 11.4 SEC (9.6-11.6)
[2020-04-22 11:52] LABS: ALBUMIN 3.6 g/dL (3.5-5.0); BILIRUBIN,TOTAL 0.3 mg/dL (0.2-1.0); PARTIAL THROMBOPLASTIN TIME 28.1 SEC (26.3-35.5); TOTAL PROTEIN, SERUM 6.5 g/dL (6.0-8.3)
[2020-04-22] MEDS ORDERED: PANTOPRAZOLE 40 MG/VIAL ONE ×3 (13:27→23:09)
[2020-04-22 13:49] LABS: APPEARANCE,URINE Clear (CLEAR); BILIRUBIN,URINE Negative (NEGATIVE); COLOR,URINE Yellow (YELLOW); GLUCOSE, URINE (UA) 500 mg/dL (NEGATIVE); KETONES,URINE Negative (NEGATIVE); LEUKOCYTE ESTERASE ,URINE Trace (NEGATIVE); NITRATE,URINE Negative (NEGATIVE); OCCULT BLOOD,URINE Negative (NEGATIVE); PH,URINE 5.5 (5.0-8.0); PROTEIN,URINE Negative (NEGATIVE)
[2020-04-22 14:07] LABS: BACTERIA,URINE Rare /HPF (None Seen); RBC,URINE 0-1 /HPF (0-1); SQUAMOUS EPITHELIAL CELL,UR Rare /HPF (0-2); WBC,URINE 0-1 /HPF (0-1)
[2020-04-22] MEDS ORDERED: PANTOPRAZOLE 40 MG/VIAL IVP SCH (14:30)
[2020-04-22] MEDS ORDERED: PHARMACY COMMUNICATION MISC SCH (14:45)
[2020-04-22] MEDS ORDERED: 0.9% NACL 250ML 250 ML IV ONE (14:55)
[2020-04-22 14:57] LABS: HEMATOCRIT 21.2 % (42-54)
[2020-04-22 15:50] LABS: % IRON SATURATION 10.2 % (30-44)
[2020-04-22 16:10] LABS: HEMOGLOBIN A1C 6.3 % (4.0-6.0)
[2020-04-22] MEDS: INSULIN HUMULIN R 100 UNIT/ML 3ML SQ SCH ×2 (16:30→22:30)
[2020-04-22] MEDS ORDERED: INSULIN HUMULIN R 100 UNIT/ML 3ML SQ SCH (16:30)
[2020-04-22] MEDS: LACTATED RINGERS 1000ML 1,000 ML IV SCH (17:15)
[2020-04-22 17:39] LABS: HEMATOCRIT 23.2 % (42-54)
[2020-04-22 20:32] LABS: HEMATOCRIT 24.5 % (42-54)
[2020-04-22 22:24] VITALS: BP 140/77
[2020-04-22] MEDS ORDERED: 0.9%NACL 100ML 100 ML IV ONE (23:19)
[2020-04-22] MEDS ORDERED: RANO500T2 PO (23:53)
[2020-04-22] MEDS ORDERED: FAMO-136 PO (23:53)
[2020-04-23] MEDS ORDERED: 0.9% NACL 250ML 250 ML IV ONE (00:22)
[2020-04-23] MEDS ORDERED: MAG/ALUM/SIMETH 30 ML UDCUP PO PRN (00:30)
[2020-04-23] MEDS: PANTOPRAZOLE 40MG INJ 80 MG in 0.9%NACL 100ML 100 ML IVP SCH ×3 (00:35→16:42)
[2020-04-23 03:46] VITALS: BP 131/63
[2020-04-23 04:51] LABS: BASOPHILS % (AUTO) 0.6 % (0.0-5.0); EOSINOPHILS % (AUTO) 4.4 % (0.0-8.0); HEMATOCRIT 27.5 % (42-54); LYMPHOCYTES % (AUTO) 16.5 % (21.0-51.0); MEAN CORPUSCULAR HEMOGLOBIN 31.1 pg (27.0-33.0); MEAN CORPUSCULAR HGB CONC 32.7 g/dL (32.0-36.0); MEAN CORPUSCULAR VOLUME 95.2 fL (79-99); MONOCYTES % (AUTO) 17.6 % (3.0-13.0); NEUTROPHILS % (AUTO) 60.5 % (40.0-77.0); PLATELET COUNT (AUTO) 383 K/uL (130-400); RED BLOOD CELL COUNT(AUTO) 2.89 MIL/uL (4.50-6.20); RED CELL DISTRIBUTION WIDTH 16.4 % (11.0-15.5); WHITE BLOOD COUNT (AUTO) 7.1 K/uL (4.8-10.8)
[2020-04-23] MEDS: LACTATED RINGERS 1000ML 1,000 ML IV SCH (05:11)
[2020-04-23 05:12] LABS: CREATININE 0.7 mg/dL (0.5-1.5); MAGNESIUM 1.8 mg/dL (1.80-2.40); POTASSIUM 4.9 mmol/L (3.5-5.1)
[2020-04-23 08:00] VITALS: BP 118/60
[2020-04-23] MEDS: ASPIRIN 81MG CHEW TAB PO SCH (10:18)
[2020-04-23] MEDS: ISOSORBIDE MONO 60MG SR TAB PO SCH (10:42)
[2020-04-23 13:00] VITALS: BP 118/55
[2020-04-23 16:00] VITALS: BP 111/61
[2020-04-23] MEDS: FLUTICASONE/VILANTEROL 1 EACH AER.POW.BA IH SCH (16:14)
[2020-04-23] MEDS ORDERED: PEG 3350/NA SULF,BICARB,CL/KCL 4000 ML SOLN PO SCH (16:30)
[2020-04-23 19:39] VITALS: BP 135/70
[2020-04-23] MEDS ORDERED: ATORVASTATIN 20 MG TABLET PO SCH (21:00)
[2020-04-23] MEDS: INSULIN HUMULIN R 100 UNIT/ML 3ML SQ SCH (22:30)
[2020-04-23] MEDS: RANOLAZINE 500 MG TAB.SR.12H PO SCH (22:48)
[2020-04-23 23:40] VITALS: BP 139/72
[2020-04-24] VITALS (17 sets, daily range): BP systolic 72–122; BP diastolic 26–70
[2020-04-24] MEDS: INSULIN HUMULIN R 100 UNIT/ML 3ML SQ SCH ×3 (04:30→16:50)
[2020-04-24 05:45] LABS: BASOPHILS % (AUTO) 0.5 % (0.0-5.0); EOSINOPHILS % (AUTO) 2.3 % (0.0-8.0); HEMATOCRIT 26.6 % (42-54); LYMPHOCYTES % (AUTO) 18.4 % (21.0-51.0); MEAN CORPUSCULAR HEMOGLOBIN 30.1 pg (27.0-33.0); MEAN CORPUSCULAR HGB CONC 31.6 g/dL (32.0-36.0); MEAN CORPUSCULAR VOLUME 95.3 fL (79-99); MONOCYTES % (AUTO) 18.5 % (3.0-13.0); NEUTROPHILS % (AUTO) 59.9 % (40.0-77.0); PLATELET COUNT (AUTO) 396 K/uL (130-400); RED BLOOD CELL COUNT(AUTO) 2.79 MIL/uL (4.50-6.20); RED CELL DISTRIBUTION WIDTH 16.7 % (11.0-15.5); WHITE BLOOD COUNT (AUTO) 5.6 K/uL (4.8-10.8)
[2020-04-24 06:05] LABS: ALBUMIN 3.4 g/dL (3.5-5.0); BILIRUBIN,TOTAL 0.5 mg/dL (0.2-1.0); CREATININE 0.7 mg/dL (0.5-1.5); POTASSIUM 3.8 mmol/L (3.5-5.1); TOTAL PROTEIN, SERUM 6.2 g/dL (6.0-8.3)
[2020-04-24] MEDS: ASPIRIN 81MG CHEW TAB PO SCH (09:00)
[2020-04-24] MEDS: ISOSORBIDE MONO 60MG SR TAB PO SCH (09:40)
[2020-04-24] MEDS: RANOLAZINE 500 MG TAB.SR.12H PO SCH (09:40)
[2020-04-24] MEDS: FLUTICASONE/VILANTEROL 1 EACH AER.POW.BA IH SCH (09:41)
[2020-04-24] MEDS ORDERED: PROPOFOL 10 MG/ML 20ML VIAL IV ONE ×2 (10:11)
[2020-04-24] MEDS ORDERED: LIDOCAINE HCL-MPF 2% 5ML VIAL ONE (10:11)
[2020-04-24] MEDS ORDERED: PHENYLEPHRINE HCL 10 MG/ML 1ML VIAL IV ONE (10:11)
[2020-04-24] MEDS ORDERED: EPHEDRINE SULFATE 50 MG/ML AMPULE ONE (10:49)
[2020-04-25] MEDS ORDERED: CLOPIDOGREL 75MG TAB PO SCH (09:00)
[2020-04-25] MEDS ORDERED: PANTOPRAZOLE 40 MG TAB DR PO SCH (09:00)
== END 2020-04-24 17:00 | disposition home or self-care (01) | DRG 378 ==
LOC: EDH 11:27 → OBSVTOIN 14:29 → EDHIP 14:29 → 4CH 20:44
PROVIDERS: ADMIT Internal Medicine; ATTEND Internal Medicine
PROC: 30233N1 Transfusion of Nonautologous Red Blood Cells into Peripheral Vein, Percutaneous Approach (ICD-10-PCS; 2020-04-22)
PROC: 0DJ08ZZ Inspection of Upper Intestinal Tract, Via Natural or Artificial Opening Endoscopic (ICD-10-PCS; principal; 2020-04-24)
PROC: 0DJD8ZZ Inspection of Lower Intestinal Tract, Via Natural or Artificial Opening Endoscopic (ICD-10-PCS; 2020-04-24)
DX: K92.1 Melena (principal); D62 Acute posthemorrhagic anemia; E10.65 Type 1 diabetes mellitus with hyperglycemia; I35.0 Nonrheumatic aortic (valve) stenosis; E78.5 Hyperlipidemia, unspecified; I10 Essential (primary) hypertension; K21.9 Gastro-esophageal reflux disease without esophagitis; I25.10 Atherosclerotic heart disease of native coronary artery without angina pectoris; J44.9 Chronic obstructive pulmonary disease, unspecified; Z20.822 Contact with and (suspected) exposure to COVID-19; K31.9 Disease of stomach and duodenum, unspecified; R54 Age-related physical debility; I25.2 Old myocardial infarction; Z79.02 Long term (current) use of antithrombotics/antiplatelets; Z79.4 Long term (current) use of insulin; Z79.82 Long term (current) use of aspirin; Z82.0 Family history of epilepsy and other diseases of the nervous system; Z82.49 Family history of ischemic heart disease and other diseases of the circulatory system; Z86.11 Personal history of tuberculosis; Z91.81 History of falling; Z95.1 Presence of aortocoronary bypass graft; Z79.899 Other long term (current) drug therapy; Z95.5 Presence of coronary angioplasty implant and graft; Z88.0 Allergy status to penicillin; Z88.8 Allergy status to other drugs, medicaments and biological substances; Z91.040 Latex allergy status; Z85.51 Personal history of malignant neoplasm of bladder
CPT/HCPCS: 36415; 36430; 43235; 45378; 71045; 80048; 80053; 81001; 82270; 82550; 82728; 82948; 83036; 83540; 83550; 83605; 83735; 84484; 85014; 85018; 85025; 85610; 85730; 86850; 86900; 86901; 86923; 87426; 93005; A4606; C9113; G0378; J2370; J2704; J3490; J7050; J7120; P9016; U0003